=== PATIENT | female | born 1990 | race American Indian/Alaskan Native ===

== ENCOUNTER 2018-02-24 13:50 | Emergency (ER) | payer SELFPAY ==
[2018-02-24 14:26] VITALS: BP 155/106
== END 2018-02-24 17:00 | disposition left against medical advice (07) ==
LOC: ED 13:50
DX: R07.9 Chest pain, unspecified (principal); Z53.21 Procedure and treatment not carried out due to patient leaving prior to being seen by health care provider
CPT/HCPCS: 93005; 93010